=== PATIENT | male | born 1990 | race Two or more races ===

== ENCOUNTER 2020-06-21 10:19 | Emergency (ER) | payer OTHER ==
[~2020-06-21] VITALS: Ht 177.8 cm; Wt 111.1 kg
[2020-06-21] MEDS ORDERED: TOPROL XL25 M1 PO (10:48)
[2020-06-21] MEDS ORDERED: HYDRALAZINE HCL25 MG PO (10:49)
[2020-06-21] MEDS ORDERED: AMLODIPINE-OLM1 EAC2 PO (10:50)
[2020-06-21] MEDS ORDERED: FORTAMET500 MG PO (10:50)
[2020-06-21] MEDS ORDERED: HUMALOG100 UNIT/2 SQ (10:50)
== END 2020-06-21 15:44 | disposition home or self-care (01) ==
LOC: ER 10:19
DX: M25.562 Pain in left knee (principal)

== ENCOUNTER 2020-08-26 23:22 | Emergency (ER) | payer OTHER ==
[~2020-08-26] VITALS: Ht 177.8 cm; Wt 111.1 kg
[~2020-08-26 23:22] MED LIST: AMLODIPINE-OLM1 EAC2 PO; FORTAMET500 MG PO; HUMALOG100 UNIT/2 SQ; HYDRALAZINE HCL25 MG PO; TOPROL XL25 M1 PO
[2020-08-27] MEDS ORDERED: CARAFATE1 GM PO (06:10)
[2020-08-27] MEDS ORDERED: PEPCID AC20 MG PO (06:10)
[2020-08-27] MEDS ORDERED: PROTONIX20 MG PO (06:10)
== END 2020-08-27 06:23 | disposition home or self-care (01) ==
LOC: ER 23:22
DX: K25.9 Gastric ulcer, unspecified as acute or chronic, without hemorrhage or perforation (principal); R10.11 Right upper quadrant pain

== ENCOUNTER 2021-11-10 19:43 | Emergency (ER) | payer OTHER ==
[~2021-11-10] VITALS: Ht 177.8 cm; Wt 106.1 kg
[~2021-11-10 19:43] MED LIST changes: +CARAFATE1 GM PO; +PEPCID AC20 MG PO; +PROTONIX20 MG PO
[2021-11-10] MEDS ORDERED: PEPCID AC20 MG PO (22:47)
[2021-11-10] MEDS ORDERED: CIPRO500 MG PO (22:47)
== END 2021-11-10 23:35 | disposition home or self-care (01) ==
LOC: ER 19:43
DX: K52.9 Noninfective gastroenteritis and colitis, unspecified (principal); I10 Essential (primary) hypertension; E11.65 Type 2 diabetes mellitus with hyperglycemia; Z79.4 Long term (current) use of insulin; Z88.1 Allergy status to other antibiotic agents; Z20.822 Contact with and (suspected) exposure to COVID-19

== ENCOUNTER 2022-03-28 20:26 | Emergency (ER) | payer OTHER ==
[~2022-03-28] VITALS: Ht 177.8 cm; Wt 107.5 kg
[~2022-03-28 20:26] MED LIST changes: +CIPRO500 MG PO
== END 2022-03-29 00:02 | disposition home or self-care (01) ==
LOC: ER 20:26
DX: J06.9 Acute upper respiratory infection, unspecified (principal); Z20.822 Contact with and (suspected) exposure to COVID-19

== ENCOUNTER 2022-03-30 18:58 | Outpatient (CLI) | payer OTHER | END 2022-03-30 23:00 | disposition home or self-care (01) | LOC: LAB 18:58 | DX: Z20.828 Contact with and (suspected) exposure to other viral communicable diseases (principal); Z20.818 Contact with and (suspected) exposure to other bacterial communicable diseases ==

== ENCOUNTER 2022-08-16 10:50 | Emergency (ER) | payer OTHER ==
[~2022-08-16] VITALS: Ht 177.8 cm; Wt 103.9 kg
== END 2022-08-16 12:21 | disposition home or self-care (01) ==
LOC: ER 10:50
DX: U07.1 COVID-19 (principal); Z88.8 Allergy status to other drugs, medicaments and biological substances

== ENCOUNTER 2022-12-20 16:38 | Emergency (ER) | payer OTHER ==
[~2022-12-20] VITALS: Ht 177.8 cm; Wt 150.6 kg
== END 2022-12-20 17:59 | disposition home or self-care (01) ==
LOC: ER 16:39
DX: M79.672 Pain in left foot (principal); Z88.8 Allergy status to other drugs, medicaments and biological substances

== ENCOUNTER 2024-03-24 10:21 | Emergency (ER) | payer OTHER ==
[~2024-03-24] VITALS: Ht 177.8 cm; Wt 108.9 kg
[2024-03-24] MEDS ORDERED: LANTUS SOL100 UNIT/1 SQ (10:48)
[2024-03-24] MEDS ORDERED: TOPROL XL50 M1 PO (10:48)
[2024-03-24 10:49] VITALS: BP 124/86; O2SAT 96
[2024-03-24] MEDS ORDERED: KETOROLAC TROMETHAMINE 60 MG VIAL IM ONE ×2 (13:12→13:15)
[2024-03-24] MEDS ORDERED: CELEBREX200MG PO (15:08)
== END 2024-03-24 15:29 | disposition home or self-care (01) ==
LOC: ER 10:23
DX: S93.601A Unspecified sprain of right foot, initial encounter (principal); X58.XXXA Exposure to other specified factors, initial encounter; Y93.9 Activity, unspecified; Y92.9 Unspecified place or not applicable; Y99.9 Unspecified external cause status; E11.9 Type 2 diabetes mellitus without complications; Z79.4 Long term (current) use of insulin; I10 Essential (primary) hypertension; Z88.8 Allergy status to other drugs, medicaments and biological substances

== ENCOUNTER 2024-03-25 12:08 | Outpatient (CLI) | payer OTHER ==
[~2024-03-25 12:08] MED LIST changes: +CELEBREX200MG PO; +LANTUS SOL100 UNIT/1 SQ; +TOPROL XL50 M1 PO
== END 2024-03-25 12:18 | disposition home or self-care (01) ==
LOC: SONOGRAMA 12:08
PROVIDERS: ATTEND General Practice
DX: M79.671 Pain in right foot (principal); S93.601A Unspecified sprain of right foot, initial encounter; X58.XXXA Exposure to other specified factors, initial encounter; Y93.9 Activity, unspecified; Y92.9 Unspecified place or not applicable; Y99.9 Unspecified external cause status